=== PATIENT | male | born 1965 | race Caucasian/White ===

== ENCOUNTER 2019-08-28 03:02 | Emergency (ER) | payer OTHER ==
[~2019-08-28] VITALS: Ht 172.7 cm; Wt 77.3 kg
[2019-08-28] MEDS ORDERED: aspirin 81mg tab.chew PO ONE (03:05)
[2019-08-28] MEDS ORDERED: dexamethasone sod phosphate 10mg/ml inj IV STA (03:14)
[2019-08-28] MEDS ORDERED: ipratropium/albuterol 3ml nebule NEB ONE (03:15)
[2019-08-28] MEDS ORDERED: IPRA3AMP9 IH (03:21)
[2019-08-28] MEDS ORDERED: ALBU18HF2 INH (03:21)
[2019-08-28] MEDS ORDERED: BUDE10.2 INH (03:21)
[2019-08-28 03:31] LABS: BASOPHILS # (AUTO) 0.1 X10'3 (0-0.2); BASOPHILS % (AUTO) 1.5 % (0-1); EOSINOPHILS # (AUTO) 0.7 X10'3 (0-0.9); EOSINOPHILS % (AUTO) 7.9 % (0-6); HEMATOCRIT 43.7 % (42.0-52.0); HEMOGLOBIN 15.1 g/dl (14.0-17.9); LYMPHOCYTES # (AUTO) 2.2 X10'3 (1.1-4.8); LYMPHOCYTES % (AUTO) 25.5 % (21-51); MEAN CORPUSCULAR HEMOGLOBIN 31.6 PG (27.0-31.0); MEAN CORPUSCULAR HGB CONC 34.5 g/dL (33.0-36.5); MEAN CORPUSCULAR VOLUME 91.7 FL (78-98); MEAN PLATELET VOLUME 7.7 FL (7.4-10.4); MONOCYTES # (AUTO) 0.9 X10'3 (0-0.9); MONOCYTES % (AUTO) 10.1 % (2-12); NEUTROPHILS # (AUTO) 4.9 X10'3 (1.8-7.7); PLATELET COUNT 325 X10'3 (140-440); RED BLOOD COUNT 4.77 X10'6 (4.70-6.10); RED CELL DISTRIBUTION WIDTH 13.4 % (11.5-14.5); WHITE BLOOD COUNT 8.8 X10'3 (4.5-11.0)
[2019-08-28] MEDS ORDERED: albuterol 2.5 MG/3 ML nebule CONTNEB PRN (03:40)
[2019-08-28 03:43] LABS: ALANINE AMINOTRANSFERASE 37 U/L (12-78); ALBUMIN 3.9 G/DL (3.4-5.0); ALBUMIN/GLOBULIN RATIO 1.1 (1.1-1.5); ALKALINE PHOSPHATASE 119 IU/L (46-116); ANION GAP 9 (8-16); ASPARTATE AMINO TRANSFERASE 22 U/L (10-37); BILIRUBIN,TOTAL 0.3 MG/DL (0.1-1.0); BLOOD UREA NITROGEN 12 MG/DL (7-18); CALCIUM 9.9 MG/DL (8.5-10.1); CHLORIDE 104 MMOL/L (99-107); CREATININE 0.92 MG/DL (0.60-1.10); GLUCOSE 120 MG/DL (70-104); SODIUM 139 MMOL/L (135-145); TOTAL CARBON DIOXIDE 25.8 MMOL/L (24-32); TOTAL PROTEIN 7.5 G/DL (6.4-8.2); eGFR 87 ML/MIN
[2019-08-28] MEDS ORDERED: DOXY100C43 PO (04:26)
[2019-08-28] MEDS ORDERED: PRED20TA PO (04:26)
[2019-08-28] MEDS ORDERED: ALBU8HFA PO (04:26)
[2019-08-28] MEDS ORDERED: IPRA3AMP31 IH (04:26)
[2019-08-28 05:32] VITALS: BP 135/72
== END 2019-08-28 05:33 | disposition home or self-care (01) ==
LOC: ER 03:03
DX: J44.1 Chronic obstructive pulmonary disease with (acute) exacerbation (principal); Z88.6 Allergy status to analgesic agent; Z79.899 Other long term (current) drug therapy
CPT/HCPCS: 71045; 80053; 83605; 83735; 83880; 84484; 85025; 87040; 93005; 94640; 94644; 94760; 96374; 99291; J1100

== ENCOUNTER 2019-09-05 20:26 | Emergency (ER) | payer OTHER ==
[~2019-09-05] VITALS: Ht 172.7 cm; Wt 75.9 kg
[~2019-09-05 20:26] MED LIST: ALBU18HF2 INH; ALBU8HFA PO; BUDE10.2 INH; DOXY100C43 PO; IPRA3AMP31 IH; IPRA3AMP9 IH; PRED20TA PO
[2019-09-05] MEDS ORDERED: ipratropium/albuterol 3ml nebule NEB ONE (21:40)
[2019-09-05] MEDS ORDERED: predniSONE 20 mg tablet PO ONE (21:40)
[2019-09-05] MEDS ORDERED: albuterol 2.5 MG/3 ML nebule ONE (22:03)
[2019-09-05 22:08] LABS: BASOPHILS # (AUTO) 0.1 X10'3 (0-0.2); BASOPHILS % (AUTO) 0.8 % (0-1); EOSINOPHILS # (AUTO) 0.2 X10'3 (0-0.9); EOSINOPHILS % (AUTO) 1.5 % (0-6); HEMATOCRIT 45.2 % (42.0-52.0); HEMOGLOBIN 15.1 g/dl (14.0-17.9); LYMPHOCYTES # (AUTO) 1.5 X10'3 (1.1-4.8); LYMPHOCYTES % (AUTO) 10.2 % (21-51); MEAN CORPUSCULAR HEMOGLOBIN 31.2 PG (27.0-31.0); MEAN CORPUSCULAR HGB CONC 33.4 g/dL (33.0-36.5); MEAN CORPUSCULAR VOLUME 93.3 FL (78-98); MEAN PLATELET VOLUME 7.9 FL (7.4-10.4); MONOCYTES # (AUTO) 1.4 X10'3 (0-0.9); MONOCYTES % (AUTO) 9.3 % (2-12); NEUTROPHILS # (AUTO) 11.7 X10'3 (1.8-7.7); NEUTROPHILS % (AUTO) 78.2 % (42-75); PLATELET COUNT 346 X10'3 (140-440); RED BLOOD COUNT 4.84 X10'6 (4.70-6.10); RED CELL DISTRIBUTION WIDTH 13.8 % (11.5-14.5)
[2019-09-05 22:14] LABS: ALANINE AMINOTRANSFERASE 42 U/L (12-78); ALBUMIN 3.7 G/DL (3.4-5.0); ALBUMIN/GLOBULIN RATIO 0.9 (1.1-1.5); ALKALINE PHOSPHATASE 116 IU/L (46-116); ANION GAP 13 (8-16); ASPARTATE AMINO TRANSFERASE 18 U/L (10-37); BILIRUBIN,TOTAL 0.1 MG/DL (0.1-1.0); BLOOD UREA NITROGEN 12 MG/DL (7-18); BUN/CREATININE RATIO 13.8 (5.4-32.0); CALCIUM 8.9 MG/DL (8.5-10.1); CHLORIDE 104 MMOL/L (99-107); CREATININE 0.87 MG/DL (0.60-1.10); GLUCOSE 108 MG/DL (70-104); POTASSIUM 3.9 MMOL/L (3.5-5.1); SODIUM 140 MMOL/L (135-145); TOTAL PROTEIN 7.6 G/DL (6.4-8.2); eGFR > 90 ML/MIN
[2019-09-05] MEDS ORDERED: AZIT500T9 PO (22:28)
[2019-09-05] MEDS ORDERED: PRED20TA PO (22:28)
[2019-09-05 22:40] VITALS: BP 131/85
[2019-09-05 22:49] LABS: PLATELET ESTIMATE NORMAL; TOTAL CELLS COUNTED 100
[2019-09-05 22:50] LABS: GIANT PLATELET FEW
== END 2019-09-05 22:39 | disposition home or self-care (01) ==
LOC: ER 20:27
DX: J44.1 Chronic obstructive pulmonary disease with (acute) exacerbation (principal); R06.03 Acute respiratory distress; Z79.899 Other long term (current) drug therapy; Z88.6 Allergy status to analgesic agent; Z79.2 Long term (current) use of antibiotics
CPT/HCPCS: 36415; 71045; 80053; 85025; 93005; 94640; 99284; J7512; 94760

== ENCOUNTER 2019-09-20 04:01 | Emergency (ER) | payer OTHER ==
[~2019-09-20] VITALS: Ht 172.7 cm; Wt 72.7 kg
[~2019-09-20 04:01] MED LIST changes: +AZIT500T9 PO; -DOXY100C43 PO
--- NOTE | 2019-09-20 04:24 | NUR ---
dr earl updated of pt, no protocols need to be ordered per MD.
[2019-09-20] MEDS ORDERED: dexamethasone 4mg tablet PO ONE (04:25)
[2019-09-20] MEDS ORDERED: ipratropium/albuterol 3ml nebule NEB ONE (04:25)
[2019-09-20] MEDS ORDERED: ALBU8HFA PO (04:26)
[2019-09-20] MEDS ORDERED: DOXY100C43 PO (04:26)
[2019-09-20] MEDS ORDERED: PRED20TA PO (04:26)
[2019-09-20] MEDS ORDERED: IPRA3AMP31 IH (04:34)
[2019-09-20 05:15] VITALS: BP 125/73
== END 2019-09-20 05:27 | disposition home or self-care (01) ==
LOC: ER 04:02
DX: J44.1 Chronic obstructive pulmonary disease with (acute) exacerbation (principal); Z88.6 Allergy status to analgesic agent; Z79.2 Long term (current) use of antibiotics; Z79.899 Other long term (current) drug therapy; Z87.891 Personal history of nicotine dependence
CPT/HCPCS: 93005; 94640; 94760; 99283

== ENCOUNTER 2019-10-01 06:18 | Emergency (ER) | payer OTHER ==
[~2019-10-01] VITALS: Ht 175.3 cm; Wt 73.3 kg
[~2019-10-01 06:18] MED LIST changes: +DOXY100C43 PO
[2019-10-01] MEDS ORDERED: methylPREDNISolone sod succ 125mg/2ml vial IV ONE (06:40)
[2019-10-01] MEDS ORDERED: azithromycin/NS 500mg/250ml 250 ML IV ONE (06:40)
[2019-10-01] MEDS ORDERED: normal saline 1000ML IV soln IVB ONE (06:40)
[2019-10-01] MEDS ORDERED: ipratropium/albuterol 3ml nebule NEB ONE (06:40)
[2019-10-01] MEDS ORDERED: PRED20TA PO (07:29)
[2019-10-01] MEDS ORDERED: AZIT-63 PO (07:29)
[2019-10-01] MEDS ORDERED: pseudoephedrine 30mg tablet PO ONE (07:30)
[2019-10-01] MEDS ORDERED: albuterol 2.5 MG/3 ML nebule NEB ONE (07:55)
[2019-10-01 08:55] VITALS: BP 135/73
== END 2019-10-01 08:57 | disposition home or self-care (01) ==
LOC: ER 06:19
DX: J44.1 Chronic obstructive pulmonary disease with (acute) exacerbation (principal); J06.9 Acute upper respiratory infection, unspecified; Z87.891 Personal history of nicotine dependence; Z79.899 Other long term (current) drug therapy; Z88.6 Allergy status to analgesic agent; Z79.2 Long term (current) use of antibiotics
CPT/HCPCS: 93005; 94640; 96365; 96375; 99284; J0456; J2930; J7030; 94760